=== PATIENT | female | born 1975 | race Two or more races ===

== ENCOUNTER 2019-07-10 13:19 | Inpatient (IN) | payer BC, OTHER ==
[~2019-07-10] VITALS: Ht 154.9 cm; Wt 115.7 kg
--- NOTE | 2019-07-10 13:45 | NUR ---
pt to room from wall, report received from EMS. pt reports cough, sore throat, bilateral sinus pressure, intermittent SOB x 1 month. pt reports she went to [place] one month ago, sx onset before travel. pt was 85% on room air at urgent care per EMS, transferred from urgent care to ED d/t hypoxia. EKG taken once pt to room, pt on all monitors. pt a&ox4, resps even and unlabored, speaking in full sentences without difficulty. pt denies pain at this time. awaiting MD and orders.
--- NOTE | 2019-07-10 14:07 | NUR ---
SILVIA PETE AT BEDSIDE FOR INITIAL ASSESSMENT.
[2019-07-10 14:31] LABS: BASOPHILS # (AUTO) 0.09 x10^3/uL (0-0.1); BASOPHILS % (AUTO) 1 % (0-1); EOSINOPHILS # (AUTO) 0.17 x10^3/uL (0-0.4); EOSINOPHILS % (AUTO) 2 % (1-7); LYMPHOCYTES # (AUTO) 1.69 x10^3/uL (1-3.4); LYMPHOCYTES % (AUTO) 21 % (22-44); MD NO; MEAN CORPUSCULAR HGB CONC 33.1 g/dL (32.4-35.8); MEAN CORPUSCULAR VOLUME 96.8 fL (80-100); MEAN PLATELET VOLUME 7.7 fL (7.4-10.4); MONOCYTES # (AUTO) 0.41 x10^3/uL (0.2-0.8); MONOCYTES % (AUTO) 5 % (2-9); NEUTROPHILS # (AUTO) 5.79 x10^3/uL (1.8-6.8); NEUTROPHILS % (AUTO) 71 % (42-75); PLATELET COUNT 233 x10^3/uL (130-400); RED BLOOD COUNT 4.49 x10^6/uL (3.82-5.3); RED CELL DISTRIBUTION WIDTH 14.2 % (9.6-15.2)
[2019-07-10 14:36] LABS: ANION GAP 5 mmol/L (5-15); CALCIUM 9.2 mg/dL (8.5-10.1); CHLORIDE 101 mmol/L (98-107); CREATININE 1.07 mg/dL (0.55-1.02)
[2019-07-10 14:55] LABS: RAPID INFLUENZA A Negative (Negative); RAPID INFLUENZA B Negative (Negative)
--- NOTE | 2019-07-10 15:00 | NUR ---
room air sat reassessed, pt's room air sat isx 89-91% on room air. RN instructed to perform ambulatory pulse ox assessment.
--- NOTE | 2019-07-10 15:14 | NUR ---
report given to KOURTNEY Gil.
--- NOTE | 2019-07-10 15:30 | NUR ---
REPORT FROM KOURTNEY TIJERNIA. PT SITTING UPRIGHT IN [facility], NAD NOTED. SPO2 80'S ON RA. SPO2 MONITOR REMOVED FROM OVER ACRYLIC NAIL AND NEW MONITOR PLACED OVER SKIN OF FINGER. INITIAL PULSE OX READ >90% ON RA. AMBULATORY SPO2 TEST COMPLETED, SPO2 STEADILY DECLINED TO 89%. PT DENIES SOB/DIZZINESS/CP. UPON RETURN TO [facility], SPO2 77%, RR 25. PT CONTINUES TO DENY SOB/CP. 4L O2 BY NC PLACED WITH IMPROVEMENT IN SPO2 TO >90%. ERP AWARE. CTA ORDERED. IV ESTABLISHED.
[2019-07-10] MEDS ORDERED: OMNIPAQUE 350 MG/ML, 100ML BOTTLE ONE (16:23)
[2019-07-10] MEDS ORDERED: methylPREDNISolone SOD SUCC 125 MG/2 ML IV ONE (17:00)
--- NOTE | 2019-07-10 17:23 | NUR ---
PT SITTING UP IN [facility], NAD NOTED. PT SPO2 >90% ON 4L BY NC. O2 DOWN TO 3L. POC IS ADMIT.
[2019-07-10] MEDS ORDERED: LEVO25TA4 PO (17:37)
[2019-07-10] MEDS ORDERED: methylPREDNISolone SOD SUCC 125 MG/2 ML ONE (18:29)
[2019-07-10] MEDS ORDERED: AMOXICILLIN/CLAV 875-125MG TABLET ONE (18:29)
[2019-07-10] MEDS: AMOXICILLIN/CLAV 875-125MG TABLET PO SCH (18:32)
--- NOTE | 2019-07-10 18:37 | NUR ---
Pt to be admitted to medical, room 366. Report called to Elvira.
[2019-07-10] MEDS ORDERED: ONDANSETRON 2MG/ML, 2ML IVPush PRN (20:00)
[2019-07-10] MEDS ORDERED: OXYcodone IR 5MG TABLET PO PRN (20:00)
[2019-07-10] MEDS ORDERED: ENOXAPARIN 40 MG/0.4 ML SQ SCH (20:00)
[2019-07-10] MEDS ORDERED: BISACODYL 10 MG SUPP PR PRN (20:00)
[2019-07-10] MEDS ORDERED: POTASSIUM CHLORIDE 20 MEQ TAB.ER.PRT PO ONE (20:00)
[2019-07-10] MEDS ORDERED: hydrALAzine 20 MG/ML, 1ML IVPush PRN (20:00)
[2019-07-10] MEDS ORDERED: ACETAMINOPHEN 325 MG TABLET PO PRN (20:00)
[2019-07-10] MEDS ORDERED: FUROSEMIDE 20 MG/2 ML IV ONE (20:00)
[2019-07-10] MEDS ORDERED: ONDANSETRON ODT 4 MG PO PRN (20:00)
[2019-07-10] MEDS ORDERED: PROMETHAZINE 25 MG/ML, 1ML IM PRN (20:00)
[2019-07-10] MEDS ORDERED: DOCUSATE 100 MG CAPSULE PO PRN (20:00)
[2019-07-10 20:16] VITALS: BP 145/98
[2019-07-10 20:43] LABS: FREE T4 (FREE THYROXINE) 0.29 ng/dL (0.76-1.46)
[2019-07-11 03:17] VITALS: BP 121/80
[2019-07-11 05:08] LABS: BASOPHILS % (AUTO) 0 % (0-1); EOSINOPHILS # (AUTO) 0.04 x10^3/uL (0-0.4); EOSINOPHILS % (AUTO) 1 % (1-7); LYMPHOCYTES # (AUTO) 0.79 x10^3/uL (1-3.4); LYMPHOCYTES % (AUTO) 12 % (22-44); MD NO; MEAN CORPUSCULAR HEMOGLOBIN 32.1 pg (27.0-34.8); MEAN CORPUSCULAR HGB CONC 33.3 g/dL (32.4-35.8); MEAN CORPUSCULAR VOLUME 96.5 fL (80-100); MEAN PLATELET VOLUME 8.6 fL (7.4-10.4); MONOCYTES # (AUTO) 0.04 x10^3/uL (0.2-0.8); MONOCYTES % (AUTO) 1 % (2-9); NEUTROPHILS # (AUTO) 5.53 x10^3/uL (1.8-6.8); NEUTROPHILS % (AUTO) 86 % (42-75); PLATELET COUNT 232 x10^3/uL (130-400); RED BLOOD COUNT 4.55 x10^6/uL (3.82-5.3); RED CELL DISTRIBUTION WIDTH 14.3 % (9.6-15.2)
[2019-07-11 05:09] LABS: ANION GAP 5 mmol/L (5-15); CHLORIDE 100 mmol/L (98-107)
[2019-07-11 05:12] LABS: ALANINE AMINOTRANSFERASE 44 U/L (12-78); ALKALINE PHOSPHATASE 73 U/L (45-117); BILIRUBIN,TOTAL 0.8 mg/dL (0.2-1.0); CHOLESTEROL, TOTAL 303 mg/dL (140-239); CREATININE 1.14 mg/dL (0.55-1.02); HDL CHOL % 13 % (28-40); HDL CHOLESTEROL (DIRECT) 38 mg/dL (40-60); LDL CHOLESTEROL,CALCULATED 220 mg/dL (54-169); LDL/HDL RATIO 5.8 (0.5-3.0); TOTAL PROTEIN 8.8 g/dL (6.4-8.2); TRIGLYCERIDES 225 mg/dL (50-200); VLDL CHOLESTEROL 45 mg/dL (0-25)
[2019-07-11] MEDS: LEVOTHYROXINE 100 MCG TABLET PO SCH (05:43)
[2019-07-11 07:13] VITALS: BP 136/89
[2019-07-11] MEDS ORDERED: ACETAMINOPHEN 325 MG TABLET PO PRN (08:00)
[2019-07-11] MEDS: CARVEDILOL 6.25 MG TABLET PO SCH ×2 (09:08→17:09)
[2019-07-11] MEDS: HEPARIN 5,000 UNITS/ML, 1ML SQ SCH ×2 (09:08→16:13)
[2019-07-11] MEDS: SODIUM CHLORIDE 0.9% 1,000 ML IV SCH (09:08)
[2019-07-11] MEDS: AMOXICILLIN/CLAV 875-125MG TABLET PO SCH ×2 (09:08→21:36)
[2019-07-11 12:27] VITALS: BP 139/94
[2019-07-11 19:32] VITALS: BP 133/89
[2019-07-11] MEDS: TEMAZEPAM 15 MG CAPSULE PO PRN (21:36)
[2019-07-11] MEDS: ATORVASTATIN 40 MG TABLET PO SCH (21:36)
[2019-07-12] MEDS: SODIUM CHLORIDE 0.9% 1,000 ML IV SCH ×2 (00:23→17:20)
[2019-07-12] MEDS: HEPARIN 5,000 UNITS/ML, 1ML SQ SCH ×3 (00:23→17:21)
[2019-07-12 00:25] VITALS: BP 124/80
[2019-07-12 05:32] VITALS: BP 138/86
[2019-07-12] MEDS: LEVOTHYROXINE 100 MCG TABLET PO SCH (05:34)
[2019-07-12] MEDS: CARVEDILOL 6.25 MG TABLET PO SCH ×2 (05:34→17:24)
[2019-07-12] MEDS: AMOXICILLIN/CLAV 875-125MG TABLET PO SCH ×2 (08:27→20:24)
[2019-07-12 10:00] LABS: ANION GAP 7 mmol/L (5-15); CALCIUM 8.6 mg/dL (8.5-10.1); CHLORIDE 98 mmol/L (98-107); CREATININE 0.99 mg/dL (0.55-1.02)
[2019-07-12 14:20] VITALS: BP 132/81
[2019-07-12 19:07] VITALS: BP 145/94
[2019-07-12] MEDS: ATORVASTATIN 40 MG TABLET PO SCH (20:24)
[2019-07-12] MEDS: POLYETHYLENE GLYCOL 17 GM PACKET PO PRN (20:24)
[2019-07-12] MEDS: TEMAZEPAM 15 MG CAPSULE PO PRN (20:24)
[2019-07-13 00:55] VITALS: BP 136/85
[2019-07-13] MEDS: HEPARIN 5,000 UNITS/ML, 1ML SQ SCH ×3 (00:56→17:36)
[2019-07-13 05:16] VITALS: BP 121/83
[2019-07-13] MEDS: LEVOTHYROXINE 100 MCG TABLET PO SCH (05:17)
[2019-07-13] MEDS: CARVEDILOL 6.25 MG TABLET PO SCH ×2 (05:17→17:36)
[2019-07-13 05:41] LABS: CHLORIDE 97 mmol/L (98-107)
[2019-07-13 05:45] LABS: ANION GAP 4 mmol/L (5-15); CALCIUM 8.6 mg/dL (8.5-10.1); CREATININE 1.01 mg/dL (0.55-1.02)
[2019-07-13] MEDS ORDERED: FUROSEMIDE 20 MG/2 ML IV ONE (07:00)
[2019-07-13 07:47] VITALS: BP 115/77
[2019-07-13] MEDS: AMOXICILLIN/CLAV 875-125MG TABLET PO SCH ×2 (08:05→20:33)
[2019-07-13 15:50] VITALS: BP 154/100
[2019-07-13] MEDS: FUROSEMIDE 20 MG/2 ML IV SCH (17:36)
[2019-07-13] MEDS: POLYETHYLENE GLYCOL 17 GM PACKET PO PRN (17:51)
[2019-07-13 19:18] VITALS: BP 143/93
[2019-07-13] MEDS: TEMAZEPAM 15 MG CAPSULE PO PRN (20:33)
[2019-07-13] MEDS: ATORVASTATIN 40 MG TABLET PO SCH (20:33)
[2019-07-14 01:06] VITALS: BP 113/74
[2019-07-14] MEDS: HEPARIN 5,000 UNITS/ML, 1ML SQ SCH ×2 (01:09→08:02)
[2019-07-14 05:23] VITALS: BP 131/96
[2019-07-14] MEDS: CARVEDILOL 6.25 MG TABLET PO SCH (05:24)
[2019-07-14] MEDS: LEVOTHYROXINE 100 MCG TABLET PO SCH (05:24)
[2019-07-14 05:49] LABS: ANION GAP 5 mmol/L (5-15); CALCIUM 8.9 mg/dL (8.5-10.1); CHLORIDE 94 mmol/L (98-107); CREATININE 1.06 mg/dL (0.55-1.02)
[2019-07-14 07:46] VITALS: BP 110/76
[2019-07-14] MEDS: AMOXICILLIN/CLAV 875-125MG TABLET PO SCH (08:02)
[2019-07-14] MEDS: FUROSEMIDE 20 MG/2 ML IV SCH (08:02)
[2019-07-14] MEDS ORDERED: FURO20TA3 PO (10:11)
[2019-07-14] MEDS ORDERED: AMOX1TAB12 PO (10:11)
[2019-07-14] MEDS ORDERED: LEVO100T PO (10:11)
[2019-07-14 13:39] VITALS: BP 134/88
== END 2019-07-14 15:55 | disposition home or self-care (01) | DRG 189 ==
LOC: ED 17:21 → EDIP 17:22 → ED 18:25 → 3N 18:48 → DCLOUNGE 07-14 15:38
PROVIDERS: ADMIT Internal Medicine; ATTEND Hospitalist
DX: J96.01 Acute respiratory failure with hypoxia (principal); E66.2 Morbid (severe) obesity with alveolar hypoventilation; E87.2 Acidosis; I31.3 Pericardial effusion (noninflammatory); Z99.11 Dependence on respirator [ventilator] status; Z68.42 Body mass index [BMI] 45.0-49.9, adult; E03.1 Congenital hypothyroidism without goiter; G47.00 Insomnia, unspecified; E87.6 Hypokalemia; R73.9 Hyperglycemia, unspecified; I11.9 Hypertensive heart disease without heart failure; J01.00 Acute maxillary sinusitis, unspecified; J32.0 Chronic maxillary sinusitis; Z83.3 Family history of diabetes mellitus; Z86.718 Personal history of other venous thrombosis and embolism
CPT/HCPCS: 36415; 36600; 71045; 71275; 80048; 80053; 80061; 82040; 82803; 83036; 83735; 83880; 84439; 84443; 84703; 85025; 87070; 87205; 87400; 93005; 93306; 99285; G0378; J1644; J1650; Q9967; J1940; J2930; J7030

== ENCOUNTER → 2020-04-24 | Outpatient (CLI) | payer BC ==
[~2020-04-24] MED LIST: AMOX1TAB12 PO; FURO20TA3 PO; LEVO100T PO; LEVO25TA4 PO
== END | disposition home or self-care (01) ==
LOC: CFH 10:00
PROVIDERS: ATTEND Family Medicine
DX: Z12.31 Encounter for screening mammogram for malignant neoplasm of breast (principal)
CPT/HCPCS: 77067